=== PATIENT | female | born 1965 | race Caucasian/White ===

== ENCOUNTER → 2018-07-14 | Outpatient (CLI) | payer OTHER | LOC: BMCIMAGING 14:37 | PROVIDERS: ATTEND Family Medicine | DX: R05 Cough (principal) ==

== ENCOUNTER → 2018-08-11 | Outpatient (CLI) | payer OTHER | LOC: BMCIMAGING 12:58 | PROVIDERS: ATTEND Internal Medicine | DX: N83.202 Unspecified ovarian cyst, left side (principal); D25.1 Intramural leiomyoma of uterus ==

== ENCOUNTER → 2018-08-11 | Outpatient (CLI) | payer OTHER | LOC: BMCIMAGING 08:27 | PROVIDERS: ATTEND Internal Medicine | DX: Z12.31 Encounter for screening mammogram for malignant neoplasm of breast (principal); Z98.82 Breast implant status ==

== ENCOUNTER → 2018-11-03 | Outpatient (CLI) | payer OTHER | LOC: EMCIMAGING 11:09 | PROVIDERS: ATTEND Internal Medicine | DX: M23.221 Derangement of posterior horn of medial meniscus due to old tear or injury, right knee (principal); M25.469 Effusion, unspecified knee; M22.41 Chondromalacia patellae, right knee; M71.21 Synovial cyst of popliteal space [Baker], right knee; Z98.890 Other specified postprocedural states | CPT/HCPCS: 73721-PN ==